=== PATIENT | female | born 1940 | race Asian ===

== ENCOUNTER 2017-09-02 12:02 | Emergency (ER) | payer MEDICARE, OTHER | END 2017-09-02 16:38 | disposition home or self-care (01) | LOC: E/R 12:02 | DX: S00.33XA Contusion of nose, initial encounter (principal); S09.8XXA Other specified injuries of head, initial encounter; W01.198A Fall on same level from slipping, tripping and stumbling with subsequent striking against other object, initial encounter; Y92.811 Bus as the place of occurrence of the external cause | CPT/HCPCS: 70450; 99284-25 ==

== ENCOUNTER 2018-06-28 14:23 | Emergency (ER) | payer MEDICARE, OTHER | END 2018-06-28 15:47 | disposition home or self-care (01) | LOC: FTE 14:23 | DX: I10 Essential (primary) hypertension (principal) | CPT/HCPCS: 99283 ==

== ENCOUNTER 2018-09-11 18:45 | Emergency (ER) | payer MEDICARE, OTHER ==
[2018-09-11 22:58] LABS: ADD MAN DIFF? NO
[2018-09-11 23:01] LABS: INR 0.86; PROTIME 11.8 Sec (11.9-14.9); PT RATIO 0.9
[2018-09-11 23:02] LABS: PARTIAL THROMBOPLASTIN TIME 31.5 Sec (23.0-35.0)
[2018-09-11 23:04] LABS: ANION GAP 5 (5-13); BLOOD UREA NITROGEN 23 mg/dl (7-20); CARBON DIOXIDE 32 mmol/L (21-31); CHLORIDE 104 mmol/L (97-110); CREATININE 0.81 mg/dl (0.44-1.00); GLUCOSE 105 mg/dl (70-220); POTASSIUM 4.6 mmol/L (3.5-5.1); SODIUM 141 mmol/L (135-144)
[2018-09-11 23:07] LABS: BASOPHILS % 0.5 % (0.0-2.0); EOSINOPHILS # 0.1 10^3/ul (0.0-0.5); EOSINOPHILS % 0.8 % (0.0-7.0); HEMATOCRIT 44.8 % (37.0-47.0); HEMOGLOBIN 14.2 g/dl (12.0-16.0); LYMPHOCYTES # 1.8 10^3/ul (0.8-2.9); MEAN CORPUSCULAR HEMOGLOBIN 31.6 pg (29.0-33.0); MEAN CORPUSCULAR HGB CONC 31.7 g/dl (32.0-37.0); MEAN CORPUSCULAR VOLUME 99.6 fl (82.0-101.0); MEAN PLATELET VOLUME 10.6 fl (7.4-10.4); MONOCYTE # 0.6 10^3/ul (0.3-0.9); MONOCYTES % 9.6 % (0.0-11.0); NEUTROPHIL # 3.8 10^3/ul (1.6-7.5); NEUTROPHILS % 60.8 % (39.0-77.0); PLATELET COUNT 266 10^3/UL (140-415)
[2018-09-11 23:07] LABS: WHITE BLOOD COUNT 6.3 10^3/ul (4.8-10.8)
[2018-09-11 23:23] LABS: ADD UMIC YES; UR ASCORBIC ACID NEGATIVE (NEGATIVE); UR BACTERIA FEW /HPF (NONE SEEN); UR BILIRUBIN (Dip) NEGATIVE (NEGATIVE); UR BLOOD (Dip) 1+ mg/dL (NEGATIVE); UR CLARITY CLEAR (CLEAR); UR COLOR YELLOW (YELLOW); UR GLUCOSE (Dip) NEGATIVE (NEGATIVE); UR KETONES (Dip) NEGATIVE (NEGATIVE); UR LEUKOCYTE ESTERASE (Dip) 1+ Leu/ul (NEGATIVE); UR NITRITE (Dip) POSITIVE (NEGATIVE); UR RBC 2 /HPF (0-5); UR SPECIFIC GRAVITY (Dip) 1.015 (1.003-1.030); UR TOTAL PROTEIN (Dip) NEGATIVE (NEGATIVE); UR UROBILINOGEN (Dip) NEGATIVE (NEGATIVE); UR WBC 6 /HPF (0-5)
[2018-09-11] MEDS: TRIMETHOPRIM/SULFAMETHOX (DS) TAB PO (23:47)
== END 2018-09-12 01:05 | disposition home or self-care (01) ==
LOC: E/R 09-12 01:05
DX: N39.0 Urinary tract infection, site not specified (principal); I10 Essential (primary) hypertension; H91.92 Unspecified hearing loss, left ear; R51 Headache; R40.2142 Coma scale, eyes open, spontaneous, at arrival to emergency department; R40.2362 Coma scale, best motor response, obeys commands, at arrival to emergency department; R40.2252 Coma scale, best verbal response, oriented, at arrival to emergency department; Z85.038 Personal history of other malignant neoplasm of large intestine
CPT/HCPCS: 36415; 70450; 71045; 80048; 81001; 85025; 85610; 85730; 99285-25